=== PATIENT | female | born 1960 | race Caucasian/White ===

== ENCOUNTER 2020-03-27 08:08 | Inpatient (IN) | payer MEDICAID, SELFPAY ==
[2020-03-27] VITALS (33 sets, daily range): BP systolic 78–128; BP diastolic 50–104; PULSE 69–91; RESP 16–25; TEMP 36.3–36.7; O2SAT 94–100; BMI 30.2; BMI 29.5; BMI 29.6
[2020-03-27] MEDS: TICAGRELOR 90 MG TABLET 180 MG PO (08:20)
[2020-03-27] MEDS: Heparin Injection (Vial) 5,000 UNIT/ML VIAL 4000 UNIT IV (08:20)
--- NOTE | 2020-03-27 08:20 | RAD_ITS ---
STUDY: X-RAY CHEST REASON FOR EXAM: Female, 59 years old. Used meth yesterday, CP started 2100. then started having n/v/d/, dizziness -- STEMI TECHNIQUE: Single AP portable view of the chest. COMPARISON: None. FINDINGS: EKG leads overlie the chest The lungs are clear and expanded. There is no demonstrated pleural abnormality. Normal size heart. Normal mediastinum and aron. Normal visualized pulmonary arteries. Normal visualized aortic arch and descending thoracic aorta. There are diffuse degenerative changes of the visualized thoracic spine. Sclerotic focus in the right humeral head likely is a bone infarct There is no demonstrated abnormality of the visualized soft tissue structures of the upper abdomen. RAD/Chest 1 View (Portable) IMPRESSION: No acute pulmonary process Electronically Signed: Tez Gutierres MD at 8:45 EDT , Service support ,
--- NOTE | 2020-03-27 08:28 | ED.DCSUM_ITS ---
- ER Visit Summary Date of Service: 03/27/20 Chief Complaint: Chest pain, vomiting History of Present Illness: The patient is a 59 F presenting with chest pain, vomiting. She states this started around 9 PM yesterday. She admits to methamphetamine use yesterday. She states she started having midsternal chest pain and then began having dizziness, vomiting, diarrhea. She states the symptoms lasted all through the night. She has history of previous heart attack after cocaine use. She states she has not used cocaine for several years. This morning she called EMS. She was given aspirin en route. Physical Examination: Vitals are stable. Patient is afebrile. Alert no acute d istress. HEENT exam is unremarkable. Neck is supple. Lungs are clear and equal bilaterally. Heart is regular rate and rhythm. Abdomen is soft nontender nondistended. Skin is warm and dry. No focal neurologic deficit. Remainder of exam is unremarkable. Emergency Department Course and Treatment: EKG shows ST elevation in inferior and anterior leads. Discussed with Dr. Long. She was given heparin and Brilinta. She will be taken emergently to the cardiac [facility]. Disposition: To concrete mixing plant laborer Impression: STEMI This note was generated with [employer] dictation software. It may contain incorrect words, spelling, and punctuation that were not noted in review of the chart prior to signing ED Disposition - Plan for ED Patient: Referrals: Care Physician,No Primary [Primary Care Provider] -
[2020-03-27 08:32] LABS: Absolute Lymphocyte Count 2.79 X10^3/uL (0.83-4.51); Absolute Neutrophil Count 15.7 X10^3/uL (2.0-7.7); Basophil# 0.04 X10^3/uL; Basophil% 0.2 % (0-1); Eosinophil# 0.06 X10^3/uL; Eosinophils% 0.3 % (0-5); Hemoglobin 15.4 g/dL (12.0-15.0); Lymphocyte # 2.79 X10^3/ul (4.0); Lymphocyte % 14.1 % (19-41); Mean Corp Hgb Conc 35.8 g/dL (32-36); Mean Corpuscular Hgb 29.5 pg (27.0-32.0); Mean Corpuscular Volume 82.4 fL (81-99); Mean Platelet Vol. 10.7 fl (6.2-12.0); Monocyte# 1.03 X10^3/uL; Monocyte% 5.2 % (0-10); NRBC Flagged by Analyzer 0 % (0-5); Neutrophil # 15.74 X10^3/uL (2.7-7.7); Neutrophil % 79.7 % (47-70); Platelet Count 402 K/mm3 (150-450); RBC Distribution Width CV 12.7 % (11.6-14.6); RBC Distribution Width SD 37.5 fl (35.1-43.9); Red Blood Count 5.22 M/mm3 (4.2-5.4); White Blood Count 19.8 K/mm3 (4.4-11.0)
[2020-03-27 08:45] LABS: International Normalized Ratio 1.1; Partial Thromboplast Time 25.3 Seconds (24.1-36.2); Prothrombin Time (Protime)PT. 13.8 SECONDS (11.7-14.9)
[2020-03-27 08:47] LABS: Anion Gap 12 (5-15); BUN 70 mg/dL (7-18); BUN/Creat Ratio 38.3 RATIO (10-20); Chloride 90 mmol/L (98-107); Creatinine, Serum 1.83 mg/dL (0.55-1.02); EST Glomerular Filtration Rate 30 mL/min (>60); Est Glom Filt Rate - Afr Amer 36 mL/min (>60); Estimated Creatinine Clearance 28.94 ml/min; Glucose 165 mg/dL (74-106); Potassium 2.9 mmol/L (3.5-5.1); Sodium Level 127 mmol/L (136-145)
--- NOTE | 2020-03-27 08:57 | CL.D_ITS ---
Patient Name: ACACIA QUINTERO Study Date: 03/27/2020 Performing: Dominik Long MD Ht: 64.17 inches 163 cm : 1960 Wt: 176.37 lbs 80 kg Age: 59 Gender: female BSA: 1.86 PROCEDURE(S) PERFORMED [id number]/LV CLINICAL PROFILE AND INDICATIONS Patient presents with STEMI for emergent cardiac cath. Indications: ACS <= 24 hrs, Suspected CAD Heart Failure: NYHA Class: 1, Newly Diagnosed: Yes, Heart Failure Type: Systolic Stress/Imaging Stress/Image Study Performed: No Angina Classification Anginal Classification w/in 2 Weeks: No symptoms CAD Presentations: STEMI. Symptom onset Date/Time: 03/26/2020 21:00:00 Time Estimated Comorbidities/Risk Factors: Current/Recent Smoker (< 1year) Prior RI CONCLUSIONS Normal coronary arteries Segmented LV systolic dysfunction- Severe LVEF: by LV gram 30 % Normal Left Ventricular End Diastolic Pressure RECOMMENDATIONS Management as per referring Code Enforcement Officer Manual sheath removal given pts h/o meth use and concern for groin infection. D/w Dr Su. Repeat echo in 2 months. DESCRIPTION OF PROCEDURE The patient arrived to the procedure lab. The risks and benefits of the procedure as well as a full d escription of our services here and current unavailability of surgical backup were fully explained to the patient and/or their significant other prior to the catheterization. The Timeout was completed, verifying the correct patient and procedure. The patient's procedural site was prepped and draped in the usual fashion. Local anesthetic was given subcutaneously to right groin region with Lidocaine 2%. Using a modified Seldinger technique, arterial access was obtained via the right femoral artery, a 6 Fr sheath was inserted. Right Coronary Artery selective angiography was then performed in multiple v iews using a 4 Fr. 3DRC catheter. Left Coronary Artery selective angiography was performed in multipl e views using a 6 Fr. EBU 3.5 guide. Left Ventriculography was performed in QUINTEROS projection using a 4 Fr. Pigtail catheter. LV to AO pullback pressures were then recorded.The arterial sheath was sutured in place and capped CORONARY ANGIOGRAPHY DOMINANCE: Right Dominant LEFT HEART ASSESSMENT Left Ventricular Ejection Fraction: by LV Gram 30% with lise-apical hypokinesis % Anterior Dyskinesis - Severe. Apical Dyskinesis - Severe. Inferior Apical Dyskinesis - Moderate Consistent with Takotsubo cardiomyopathy. LVEDP: 9 mmHg Normal Left Ventricular End Diastolic Pressure Cardiomyopathy: Takutsubo LEFT MAIN: Angiographically normal LEFT ANTERIOR DESCENDING ARTERY: Angiographically normal CIRCUMFLEX ARTERY: Angiographically normal RIGHT CORONARY ARTERY: Angiographically normal COMPLICATIONS No Complications PROCEDURE MEDICATIONS Oxygen: 2 L/min via nasal cannula SUMMARY OF HEMODYNAMIC DATA Time AIR REST ECG 08:31:32 AO 76/40 (55) SA 08:38:56 LV 100/-12, 7 08:41:21 LV 98/-12, 6 08:41:27 LVp 103/-12, -1 08:41:37 AOp 106/49 (69) 08:41:42 Signed By Dominik Long MD On 03/27/2020 8:56:35 AM Dominik Long MD
[2020-03-27 09:25] LABS: Internal QC Validated? YES +Cl - CLEAR BKGD; Pregnancy, Serum, hCG Quali. POSITIVE > 10 Negative
[2020-03-27] MEDS: fentaNYL 100 MCG/2 ML Ampul 25 MCG IV (09:40)
[2020-03-27] MEDS: Midazolam 2 MG/2 ML Syringe 1 MG IV (09:40)
[2020-03-27 10:51] LABS: ACT Activated Clotting Time 142 sec (74-137)
[2020-03-27] MEDS: LORazepam 1 MG Tablet PO ×2 (10:53→15:45)
[2020-03-27 12:38] LABS: hCG Titer Quant., Serum 7 mIU/mL (1-3)
[2020-03-27] MEDS: buPROPion (XL) 150 MG TABLET.XL PO (14:01)
[2020-03-27] MEDS: Carvedilol 3.125 MG TABLET PO (14:01)
[2020-03-27] MEDS: busPIRone 15 MG TABLET PO ×2 (14:02→22:10)
[2020-03-27] MEDS: Gabapentin 800 MG Tablet PO ×2 (14:02→17:45)
[2020-03-27 15:38] LABS: Internal QC Validated? YES +Cl - CLEAR BKGD; Pregnancy, Urine Negative Negative
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
[2020-03-27] MEDS: clonazePAM 0.5 MG Tablet PO (18:15)
[2020-03-27] MEDS: Atorvastatin Calcium 40 MG Tablet PO (22:10)
[2020-03-27] MEDS: traZODone 100 MG Tablet PO (22:10)
[2020-03-28] VITALS (16 sets, daily range): BP systolic 85–118; BP diastolic 48–87; PULSE 73–100; RESP 14–24; TEMP 36.4–37.1; O2SAT 93–96
[2020-03-28 04:00] LABS: Absolute Lymphocyte Count 2.88 X10^3/uL (0.83-4.51); Absolute Neutrophil Count 9.5 X10^3/uL (2.0-7.7); Basophil# 0.06 X10^3/uL; Basophil% 0.4 % (0-1); Eosinophil# 0.13 X10^3/uL; Hematocrit 38.6 % (37-47); Hemoglobin 13.5 g/dL (12.0-15.0); Lymphocyte # 2.88 X10^3/ul (4.0); Lymphocyte % 21.5 % (19-41); Mean Corpuscular Hgb 29.3 pg (27.0-32.0); Mean Corpuscular Volume 83.9 fL (81-99); Mean Platelet Vol. 10.3 fl (6.2-12.0); Monocyte# 0.77 X10^3/uL; Monocyte% 5.8 % (0-10); NRBC Flagged by Analyzer 0 % (0-5); Neutrophil # 9.48 X10^3/uL (2.7-7.7); Neutrophil % 70.8 % (47-70); Platelet Count 329 K/mm3 (150-450); RBC Distribution Width CV 13.2 % (11.6-14.6); RBC Distribution Width SD 40.1 fl (35.1-43.9); White Blood Count 13.4 K/mm3 (4.4-11.0)
[2020-03-28 04:13] LABS: Anion Gap 10 (5-15); BUN 43 mg/dL (7-18); BUN/Creat Ratio 51.9 RATIO (10-20); Calcium,Total 8.4 mg/dL (8.5-10.1); Chloride 98 mmol/L (98-107); Creatinine, Serum 0.83 mg/dL (0.55-1.02); EST Glomerular Filtration Rate 75 mL/min (>60); Est Glom Filt Rate - Afr Amer 91 mL/min (>60); Glucose 140 mg/dL (74-106); Potassium 3.5 mmol/L (3.5-5.1); Sodium Level 132 mmol/L (136-145)
[2020-03-28 07:05] LABS: ACT Activated Clotting Time 197 sec (74-137)
--- NOTE | 2020-03-28 08:57 | PN.CARD_ITS ---
Subjectve: Patient doing well this morning however still has episodes of hypotension, as well as some anxiety. She is less anxious than yesterday. She denies any right groin pain, chest pain, or angina. Echocardiogram in progress. Telemetry negative. EKG today 03/28/2020 shows normal sinus rhythm with resolving anterior T wave inversion with QT corrected interval of 548 ms. Objective: Vital Signs Temp Pulse Resp BP Pulse Ox 97.6 F L 82 24 H 104/64 94 03/28/20 04:00 03/28/20 06:00 03/28/20 06:00 03/28/20 06:00 03/28/20 06:00 Oxygen Delivery Method Room Air Weight: 172 lb 2.896 oz Body Mass Index (BMI) 29.5 Intake and Output for Last 24 Hours 03/26/20 03/27/20 03/28/20 23:59 23:59 23:59 Intake Total 1000 / 1000 725 / 725 Output Total 1175 / 1175 400 / 400 Balance -175 / -175 325 / 325 General: Awake, Alert, Oriented x 3 HEENT: PERRL, EOMI, Sclera Non Icteric Neck: Supple, Good ROM, No Lymph Node Enlargement Lungs: Clear to auscultation Cardiovascular: Regular Rhythm, Normal S1, Normal S2, No Murmurs, No Rubs, No Gallops Vascular: No Carotid Bruits, Normal Femoral Pulses, Normal Radial Pulses, Normal Dorsalis Pedal Pulse, Normal Posterior Tibial Pulses Abdomen: Bowel Sounds Present, Soft, Non Tender, No HSM, No Organomegaly Extremities: No Cyanosis, No Clubbing, No edema Neurological: No Focal Motor or Sensory Deficit 03/28/20 03:55: WBC 13.4 H, RBC 4.60, Hgb 13.5, Hct 38.6, MCV 83.9, MCH 29.3, MCHC 35.0, Plt Count 329, MPV 10.3, Immature Gran % (Auto) 0.500, Neut % (Auto) 70.8 H, Lymph % (Auto) 21.5, Davison % (Auto) 5.8, Eos % (Auto) 1.0, Baso % (Auto) 0.4, Absolute Neuts (auto) 9.5 H, Nucleated RBC % 0 03/28/20 03:55: Sodium 132 L, Potassium 3.5, Chloride 98, Carbon Dioxide 24.0, Anion Gap 10, BUN 43 H, Creatinine 0.83, Est GFR (MDRD) Af Amer 91, Est GFR (MDRD) Non-Af 75, BUN/Creatinine Ratio 51.9 H, Glucose 140 H, Calcium 8.4 L Rhythm: EKG: ECHO: Stress Test: Cardiac Cath: PCI: CT Surgery: Holter monitor: EPS: PPM: CXR: Chest CT Scan: Medical Necessity - Tobacco Use Smoking Status: Current every day smoker Tobacco Use: Cigarettes Assessment/Plan 1. LV dysfunction: The patient presents with what appears to be methamphetamine induced tach at [place] cardiomyopathy with acute coronary vasoconstriction of the anterior apical and inferior apical territories. 2D echo with Doppler in progress and confirms anteroseptal apical and inferior apical hypokinesis, final results pending. Her emergent left heart catheterization yesterday demonstrated relatively normal coronary arteries, no indication for intervention. Brilinta was discontinued. Recommend continuing Coreg 3.125 mg p.o. twice daily. Would avoid lisinopril at this time given the patient's hypotension. I recommend the patient be transferred to PCU for 1 more day of blood pressure monitoring and ambulation. In addition the patient will most likely benefit from social work interaction/intervention for her chronic drug use. The patient apparently may have had a similar episode using cocaine about 10 years ago where she required emergent catheterization but no intervention was performed. I have informed the patient that she is at a higher risk for recurrent Takostubos cardiomyopathy if she continues to use methamphetamine, cocaine, or just in general and to avoid high stress situations that may precipitate coronary vasoconstriction. Patient is voiced understanding. 2. Patient may be transferred to PCU for 1 more day of observation. 3. Thank you very much for the opportunity to participate in the cardiac care of your patient. Inpatient E&M: 14331 Subs Hosp L2
[2020-03-28] MEDS: Aspirin 81 MG TAB.CHEW PO (09:00)
[2020-03-28] MEDS: Gabapentin 800 MG Tablet PO ×3 (09:00→16:18)
[2020-03-28] MEDS: buPROPion (XL) 150 MG TABLET.XL PO (09:00)
[2020-03-28] MEDS: Carvedilol 3.125 MG TABLET PO ×2 (09:00→23:00)
[2020-03-28] MEDS: busPIRone 15 MG TABLET PO ×2 (09:00→23:00)
[2020-03-28] MEDS: clonazePAM 0.5 MG Tablet PO ×2 (09:02→18:53)
--- NOTE | 2020-03-28 10:51 | PN_ITS ---
Subjective: Feels much better, no chest pain, no lightheadedness or dizziness. Vitals/I&O's: Vital Signs Temp Pulse Resp BP Pulse Ox 98.0 F 87 17 115/64 96 03/28/20 08:00 03/28/20 08:00 03/28/20 08:00 03/28/20 08:00 03/28/20 08:00 Oxygen Delivery Method Room Air Weight: 172 lb 2.896 oz Body Mass Index (BMI) 29.5 Intake and Output for Last 24 Hours 03/26/20 03/27/20 03/28/20 23:59 23:59 23:59 Intake Total 1000 / 1000 725 / 725 Output Total 1175 / 1175 400 / 400 Balance -175 / -175 325 / 325 General: Alert, Oriented x3, Cooperative, No apparent distress HEENT: Atraumatic, PERRLA, EOMI, Normocephalic Oral: Dry Mucosa Neck: Supple, No JVD Lungs: Clear to auscultation, Normal air movement, No rhonchi, No wheeze, No rales Cardiovascular: Regular rate, Regular Rhythm, Normal S1, Normal S2, No murmurs Abdomen: Soft, Non Tender, Non-Distended, No Hepato-splenomegaly Extremities: No edema, Capillary Refill Less than 3 Seconds Skin: No rashes, No breakdown Neurological: Neuro grossly intact, Sensory exam intact to light touch and pain Psych/Mental Status: Normal affect, Restless Laboratory Results 03/27/20 08:15: HCG, Quant 7 H 03/27/20 08:38: Activated Clotting Time 197 H 03/27/20 10:41: Activated Clotting Time 142 H 03/27/20 15:20: Urine Test Negative 03/28/20 03:55: WBC 13.4 H, RBC 4.60, Hgb 13.5, Hct 38.6, MCV 83.9, MCH 29.3, MCHC 35.0, RDW Std Deviation 40.1, RDW Coeff of Caitlin 13.2, Plt Count 329, MPV 10.3, Immature Gran % (Auto) 0.500, Neut % (Auto) 70.8 H, Lymph % (Auto) 21.5, [place] % (Auto) 5.8, Eos % (Auto) 1.0, Baso % (Auto) 0.4, Absolute Neuts (auto) 9.5 H, Absolute Lymphs (auto) 2.88, Nucleated RBC % 0 03/28/20 03:55: Sodium 132 L, Potassium 3.5, Chloride 98, Carbon Dioxide 24.0, Anion Gap 10, BUN 43 H, Creatinine 0.83, Estim Creat Clear Calc 63.80, Est GFR (MDRD) Af Amer 91, Est GFR (MDRD) Non-Af 75, BUN/Creatinine Ratio 51.9 H, Glucose 140 H, Calcium 8.4 L Current Medications Albuterol Sulfate (Ventolin Aerosols) 2.5 mg INHALATION Q4H PRN PRN Reason: SOB &/OR WHEEZING Aspirin (Aspirin, Baby) 81 mg PO DAILY@0800 [facility] Last Admin: 03/28/20 09:00 Dose: 81 mg Documented by: Atorvastatin Calcium (Lipitor) 40 mg PO QHS [facility] Last Admin: 03/27/20 22:10 Dose: 40 mg Documented by: Bupropion HCl (Wellbutrin Xl) 150 mg PO DAILY [facility] Last Admin: 03/28/20 09:00 Dose: 150 mg Documented by: Buspirone HCl (Buspar) 15 mg PO BID [facility] Last Admin: 03/28/20 09:00 Dose: 15 mg Documented by: Carvedilol (Coreg) 3.125 mg PO BID [facility] Last Admin: 03/28/20 09:00 Dose: 3.125 mg Documented by: Clonazepam (Klonopin) 0.5 mg PO BID PRN PRN Reason: ANXIETY Last Admin: 03/28/20 09:02 Dose: 0.5 mg Documented by: Gabapentin (Neurontin) 800 mg PO TIDCM [facility] Last Admin: 03/28/20 09:00 Dose: 800 mg Documented by: Heparin Sodium (Beef Lung) (Heparin 500 Unit/5 Ml (100/Ml)) 500 unit IV UD PRN PRN Reason: HEPARIN FLUSH Sodium Chloride () 250 mls @ 15 mls/hr IV .[id number] PRN PRN Reason: Saline Flush Sodium Chloride () 250 mls @ 15 mls/hr IV .[id number] PRN PRN Reason: Additional IVPB Infusion Labetalol HCl (Trandate) 5 mg IV X1 PRN PRN Reason: SBP > 160 prior to sheath pull Stop: 03/29/20 08:45 Lorazepam (Ativan) 1 mg PO Q4H PRN PRN PRN Reason: AGITATION Last Admin: 03/27/20 15:45 Dose: 1 mg Documented by: Meloxicam (Mobic) 15 mg PO DAILY PRN PRN Reason: pain Sodium Chloride () 10 - 40 ml IV UD PRN PRN Reason: SALINE FLUSH Trazodone HCl (Desyrel) 100 mg PO QHS [facility] Last Admin: 03/27/20 22:10 Dose: 100 mg Documented by: STROKE Vital Signs/Narrative: Vital Signs Temp Pulse Resp BP BP Pulse Ox 03/28/20 08:00 98.0 F 87 17 115/64 96 03/28/20 07:00 82 23 H 91/48 L 94 Medical Necessity - Tobacco Use Smoking Status: Current every day smoker Tobacco Use: Cigarettes Assessment/Plan 1. Takotsubo cardiomyopathy/tobacco abuse/hyperlipidemia/HTN -Elevated troponin with ST elevations in anterior inferior leads with normal coronary arteries on cath -Currently on Coreg and aspirin in the ICU post-cath -Chest pain episode with this was likely related to her methamphetamine use -She did have a cath about 10 years ago which was also normal placed -Continue with her Lipitor but will hold her Norvasc since her blood pressure is in the low 100s -Echo is pending but she had an EF of 30% on the cardiac cath with severe left ventricular dysfunction, this should improve with medical management over time and she will likely need a repeat echo in a couple of months 2. Anxiety/depression/methamphetamine use -Counseled on cessation -Continue with her Wellbutrin, BuSpar, clonazepam, gabapentin, Remeron, and trazodone 3. She had an elevated beta hCG on serum qualitative testing prior to her cath, a serum quantitative test was also positive therefore she had a urine test done which was negative indicating that these serum tests were likely false positives. DVT: SCDs Inpatient E&M: [id number] Subs Hosp L2
[2020-03-28 11:25] LABS: Thyroid Stim Hormone (TSH) 0.84 uIU/mL (0.358-3.74)
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
--- NOTE | 2020-03-28 15:43 | CASEMGMT ---
SW did give patient resources for substance abuse and mental health. She was very appreciative. Divya BUSCH MSW
[2020-03-28] MEDS: LORazepam 1 MG Tablet PO (20:03)
[2020-03-28] MEDS: traZODone 100 MG Tablet PO (23:00)
[2020-03-28] MEDS: Atorvastatin Calcium 40 MG Tablet PO (23:01)
[2020-03-29] MEDS: LORazepam 1 MG Tablet PO (02:39)
[2020-03-29 02:46] VITALS: BP 109/54; PULSE 65; RESP 17; TEMP 36.8; O2SAT 100
[2020-03-29 04:06] VITALS: PULSE 72
[2020-03-29 07:00] VITALS: PULSE 69
--- NOTE | 2020-03-29 08:24 | DCINST_ITS ---
- Discharge Diagnoses Current Active Problems: Current Active and Chronic Problems (Last Updated 03/28/20 @ 16:29 by Delmis Laguna) STEMI (ST elevation myocardial infarction) (Acute 03/27/20) Takotsubo syndrome (Acute) History of left heart catheterization (Chronic 03/27/20) Normal coronary arteries Segmented LV systolic dysfunction- Severe. LVEF: by LV gram 30 %. Normal Left Ventricular End Diastolic Pressure. Per DJN @ [facility] 03/27/2020. Essential hypertension (Chronic) Hyperlipidemia (Chronic) You will use the following diet at home:: Cardiac Your food should be the consistency of: Regular Your liquids should be the consistency of: Regular/Thin Discharge Activity: Return to Normal Activity Call your doctor if you observe: Fever of 101 or Higher, Shortness of breath, Dizziness, Fainting spells, Swelling in the ankles, Chest pain, Increased palpitations (irregular heartbeat) Allergies/Adverse Reactions: Allergies No Known Allergies Allergy (Unverified 03/27/20 08:15) Medications to take at Discharge Albuterol Inhaler [Ventolin Hfa] 2 puff INHALATION Q6H PRN PRN 03/27/20 Atorvastatin Calcium 40 mg PO QHS 03/27/20 Bupropion HCl [Bupropion Xl] 150 mg PO DAILY 03/27/20 Clonazepam 0.5 mg PO BID PRN 03/27/20 Gabapentin 800 mg PO TID 03/27/20 Meloxicam 15 mg PO DAILY PRN 03/27/20 busPIRone [Buspar] 15 mg PO BID 03/27/20 traZODone [Desyrel] 100 mg PO QHS 03/27/20 Aspirin [Aspirin, Baby] 81 mg PO DAILY@0800 #60 tab.chew 03/29/20 Carvedilol [Coreg (Beta Shashi)] 3.125 mg PO BID #120 tab 03/29/20 The following prescriptions were given: Aspirin [Aspirin, Baby] 81 mg PO DAILY@0800 #60 tab.chew Transmission Status: Pending to [facility] Carvedilol [Coreg (Beta Shashi)] 3.125 mg PO BID #120 tab Transmission Status: Pending to [facility] Primary Care Physician: Care Physician,No Primary [Primary Care Provider] - Please follow up with your Primary Care Physician in: 3-5 days Test Results: Test results from this visit will be discussed in further detail at your follow- up appointment, if applicable. Please Follow Up With: Dominik Long MD When: 4 weeks
[2020-03-29 08:40] VITALS: BP 109/54; PULSE 65; RESP 17; TEMP 36.8; O2SAT 100
--- NOTE | 2020-03-29 09:13 | PCM.PN.CARD ---
Subjectve: Patient seen and examined, doing fairly well. No 24-hour events. Telemetry shows normal sinus rhythm, no ventricular ectopy. Tolerating Coreg well. Objective: Vital Signs Temp Pulse Resp BP Pulse Ox 98.3 F 65 17 109/54 L 100 03/29/20 08:40 03/29/20 08:40 03/29/20 08:40 03/29/20 08:40 03/29/20 08:40 Oxygen Delivery Method Room Air Weight: 172 lb 2.896 oz Body Mass Index (BMI) 29.5 Intake and Output for Last 24 Hours 03/27/20 03/28/20 03/29/20 23:59 23:59 23:59 Intake Total 1000 / 1000 2325 / 2325 1100 / 1100 Output Total 1175 / 1175 1200 / 1200 Balance -175 / -175 1125 / 1125 1100 / 1100 General: Awake, Alert, Oriented x 3 HEENT: PERRL, EOMI, Sclera Non Icteric Neck: Supple, Good ROM, No Lymph Node Enlargement Lungs: Clear to auscultation Cardiovascular: Regular Rhythm, Normal S1, Normal S2, No Murmurs, No Rubs, No Gallops Vascular: No Carotid Bruits, Normal Femoral Pulses, Normal Radial Pulses, Normal Dorsalis Pedal Pulse, Normal Posterior Tibial Pulses Abdomen: Bowel Sounds Present, Soft, Non Tender, No HSM, No Organomegaly Extremities: No Cyanosis, No Clubbing, No edema Neurological: No Focal Motor or Sensory Deficit Rhythm: EKG: ECHO: Stress Test: Cardiac Cath: PCI: CT Surgery: Holter monitor: EPS: PPM: CXR: Chest CT Scan: Medical Necessity - Tobacco Use Smoking Status: Current every day smoker Tobacco Use: Cigarettes Assessment/Plan 1. 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 2D echo with Doppler in progress and confirms anteroseptal apical and inferior apical hypokinesis, final results pending. Her emergent left heart catheterization in 03/27/2020 which demonstrated relatively normal coronary arteries, no indication for intervention. Brilinta was discontinued. Recommend continuing Coreg 3.125 mg p.o. twice daily. Would avoid lisinopril at this time given the patient's hypotension. Recommended continuing her Norvasc. The patient be discharged home on Coreg. No indication for anticoagulation at this time. The patient apparently may have had a similar episode using cocaine about 10 years ago where she required emergent catheterization but no intervention was performed. I have informed the patient that she is at a higher risk for recurrent Takostubos cardiomyopathy if she continues to use methamphetamine, cocaine, or just in general and to avoid high stress situations that may precipitate coronary vasoconstriction. Patient is voiced understanding. 2. Patient may be charged home. May follow-up with Dr. Long going forward. 3. Thank you very much for the opportunity to participate in the cardiac care of your patient. Discussed with Dr. Su Inpatient E&M: 32580 Subs Hosp L2
--- NOTE | 2020-03-29 09:24 | PCM.DC.SUM ---
Discharge Date and Diagnosis - Problem List Patient Problems: Active and Suspected Problems (Last Updated 03/28/20 @ 16:29 by Delmis Laguna) STEMI (ST elevation myocardial infarction) (Acute 03/27/20) Takotsubo syndrome (Acute) Date of Admission: 03/27/20 Date of Discharge: 03/29/20 - Primary Discharge Diagnosis Acute Problems: Active Problems (Last Updated 03/28/20 @ 16:29 by Delmis Laguna) STEMI (ST elevation myocardial infarction) (Acute 03/27/20) Takotsubo syndrome (Acute) - Secondary Discharge Diagnosis Chronic Problems: Chronic Problems (Last Updated 03/28/20 @ 16:29 by Delmis Laguna) History of left heart catheterization (Chronic 03/27/20) Normal coronary arteries Segmented LV systolic dysfunction- Severe. LVEF: by LV gram 30 %. Normal Left Ventricular End Diastolic Pressure. Per [facility]N @ [facility] 03/27/2020. Essential hypertension (Chronic) Hyperlipidemia (Chronic) Hospital Course and Treatment Imaging Results: CXR: IMPRESSION: No acute pulmonary process Cardiac Cath:CLINICAL PROFILE AND INDICATIONS Patient presents with STEMI for emergent cardiac cath. Indications: ACS <= 24 hrs, Suspected CAD Heart Failure: NYHA Class: 1, Newly Diagnosed: Yes, Heart Failure Type: Systolic Stress/Imaging Stress/Image Study Performed: No Angina Classification Anginal Classification w/in 2 Weeks: No symptoms CAD Presentations: STEMI. Symptom onset Date/Time: 03/26/2020 21:00:00 Time Estimated Comorbidities/Risk Factors: Current/Recent Smoker (< 1year) Prior GA CONCLUSIONS Normal coronary arteries Segmented LV systolic dysfunction- Severe LVEF: by LV gram 30 % Normal Left Ventricular End Diastolic Pressure RECOMMENDATIONS Management as per referring Pharmacy Intake Coordinator Manual sheath removal given pts h/o meth use and concern for groin infection. D/w Dr Su. Repeat echo in 2 months. Consults: Cardiology Operations: None Procedures: 2-D Echocardiogram, Cardiac catheterization Summary of Care Provided: Per HPI: The patient is a 59 year old F with PMH as below who presents with chest pain that started last night at 9 PM after her first time use of methamphetamines. She says that the chest pain was on and off and she started having some dizziness, vomiting, and diarrhea. She presented to the ER when the chest pain did not resolve and she was found to have an elevated troponin II 0.[address] elevations in the anterior inferior leads. Stimulant was called and she was taken to the [facility] where her coronary arteries were found to be normal. Based on the EKG findings and the elevated troponin she was felt to have Takotsubo's. She is feeling better after the has some baseline anxiety issues is little bit restless in bed at this time. Hospital Course: 1. Takotsubo cardiomyopathy/tobacco abuse/HLD/QDN-50-hpal-old female who presents after a single time meth use with chest pain. Had gone to bed that she came into the ER. She underwent a cardiac cath which showed an EF of 30% and severe left ventricular dysfunction with clean coronary arteries. She did have ST elevations in the anterior/inferior leads as well as an elevated troponin indicating a takotsubo cardiomyopathy. She will need to follow-up with cardiology as an outpatient and have a repeat echo in 2 months to document improvement. She was started on aspirin, Coreg and continued on her Lipitor. Her blood pressures were borderline low in the low 100s to low 1 teens therefore her Norvasc was discontinued. She will need to follow-up with a PCP in about a week and cardiology in 2 to 4 weeks. She is feeling well today and would like to go home, I discussed with her the risks and benefits of discharge and she expressed understanding. 2. Her other medical diagnoses were evaluated and her home medications were continued where appropriate Patient Problems: Active and Suspected Problems (Last Updated 03/28/20 @ 16:29 by Delmis Laguna) STEMI (ST elevation myocardial infarction) (Acute 03/27/20) Takotsubo syndrome (Acute) - Physical Exam Vitals/I&O's: Vital Signs Temp Pulse Resp BP Pulse Ox 98.3 F 65 17 109/54 L 100 03/29/20 08:40 03/29/20 08:40 03/29/20 08:40 03/29/20 08:40 03/29/20 08:40 Oxygen Delivery Method Room Air Weight: 172 lb 2.896 oz Body Mass Index (BMI) 29.5 Intake and Output for Last 24 Hours 03/27/20 03/28/20 03/29/20 23:59 23:59 23:59 Intake Total 1000 / 1000 2325 / 2325 1100 / 1100 Output Total 1175 / 1175 1200 / 1200 Balance -175 / -175 1125 / 1125 1100 / 1100 General: Alert, Oriented x3, Cooperative, No apparent distress HEENT: Atraumatic, PERRLA, EOMI, Normocephalic Oral: Moist mucosa Neck: Supple, No JVD Lungs: Clear to auscultation, Normal air movement, No rhonchi, No wheeze, No rales Cardiovascular: Regular rate, Regular Rhythm, Normal S1, Normal S2, No murmurs Abdomen: Soft, Non Tender, Non-Distended, No Hepato-splenomegaly Extremities: No edema, Capillary Refill Less than 3 Seconds Skin: No rashes, No breakdown Neurological: Neuro grossly intact, Sensory exam intact to light touch and pain Psych/Mental Status: Normal affect, Restless Laboratory Results 03/28/20 03:55: TSH 0.84 Current Medications Albuterol Sulfate (Ventolin Aerosols) 2.5 mg INHALATION Q4H PRN PRN Reason: SOB &/OR WHEEZING Aspirin (Aspirin, Baby) 81 mg PO DAILY@0800 [facility] Last Admin: 03/28/20 09:00 Dose: 81 mg Documented by: Atorvastatin Calcium (Lipitor) 40 mg PO QHS [facility] Last Admin: 03/28/20 23:01 Dose: 40 mg Documented by: Bupropion HCl (Wellbutrin Xl) 150 mg PO DAILY [facility] Last Admin: 03/28/20 09:00 Dose: 150 mg Documented by: Buspirone HCl (Buspar) 15 mg PO BID [facility] Last Admin: 03/28/20 23:00 Dose: 15 mg Documented by: Carvedilol (Coreg) 3.125 mg PO BID [facility] Last Admin: 03/28/20 23:00 Dose: 3.125 mg Documented by: Clonazepam (Klonopin) 0.5 mg PO BID PRN PRN Reason: ANXIETY Last Admin: 03/28/20 18:53 Dose: 0.5 mg Documented by: Gabapentin (Neurontin) 800 mg PO TIDCM [facility] Last Admin: 03/28/20 16:18 Dose: 800 mg Documented by: Heparin Sodium (Beef Lung) (Heparin 500 Unit/5 Ml (100/Ml)) 500 unit IV UD PRN PRN Reason: HEPARIN FLUSH Sodium Chloride () 250 mls @ 15 mls/hr IV .[id number] PRN PRN Reason: Saline Flush Sodium Chloride () 250 mls @ 15 mls/hr IV .[id number] PRN PRN Reason: Additional IVPB Infusion Lorazepam (Ativan) 1 mg PO Q4H PRN PRN PRN Reason: AGITATION Last Admin: 03/29/20 02:39 Dose: 1 mg Documented by: Meloxicam (Mobic) 15 mg PO DAILY PRN PRN Reason: pain Sodium Chloride () 10 - 40 ml IV UD PRN PRN Reason: SALINE FLUSH Trazodone HCl (Desyrel) 100 mg PO QHS [facility] Last Admin: 03/28/20 23:00 Dose: 100 mg Documented by: Discharge Activity: Return to Normal Activity Call your doctor if you observe: Fever of 101 or Higher, Shortness of breath, Dizziness, Fainting spells, Swelling in the ankles, Chest pain, Increased palpitations (irregular heartbeat) Home Medications: Medications to take at Discharge Albuterol Inhaler [Ventolin Hfa] 2 puff INHALATION Q6H PRN PRN 03/27/20 Atorvastatin Calcium 40 mg PO QHS 03/27/20 Bupropion HCl [Bupropion Xl] 150 mg PO DAILY 03/27/20 Clonazepam 0.5 mg PO BID PRN 03/27/20 Gabapentin 800 mg PO TID 03/27/20 Meloxicam 15 mg PO DAILY PRN 03/27/20 busPIRone [Buspar] 15 mg PO BID 03/27/20 traZODone [Desyrel] 100 mg PO QHS 03/27/20 Aspirin [Aspirin, Baby] 81 mg PO DAILY@0800 #60 tab.chew 03/29/20 Carvedilol [Coreg (Beta Shashi)] 3.125 mg PO BID #120 tab 03/29/20 Following Prescrptions Were Given to Patient: Aspirin [Aspirin, Baby] 81 mg PO DAILY@0800 #60 tab.chew Transmission Status: Received by [facility] Carvedilol [Coreg (Beta Shashi)] 3.125 mg PO BID #120 tab Transmission Status: Received by [facility] Primary Care Physician: Care Physician,No Primary [Primary Care Provider] - Please follow up with your Primary Care Physician in: 3-5 days Please Follow Up With: Dominik Long MD When: 4 weeks Disposition: Home Minutes spent on discharge:: 35 Patient Condition:: Stable Medical Necessity - Tobacco Use Smoking Status: Current every day smoker Tobacco Use: Cigarettes Meaningful Use Info Meaningful Use Diagnoses (Choose all that apply): AMI, CHF - AMI/Post PCI/Angioplasty Aspirin given w/in 24hrs of arrival?: Yes ASA at discharge?: Yes Statins at discharge?: Yes Alexandre/ARB at discharge?: No Reason Alexandre/ARB not ordered:: Hypotension Beta Shashi at discharge?: Yes Done w/ Acute GA measure.: Yes Documented LVEF (%): 30 - CHF ALEXANDRE/ARB ordered at discharge?: No Reason ALEXANDRE/ARB not ordered?: Hypotension Documented LVEF (%): 30 Inpatient E&M: 91047 Disch Hosp
[2020-03-29 09:48] VITALS: BP 119/75; PULSE 69; RESP 18; TEMP 36.7; O2SAT 96
[2020-03-29] MEDS: busPIRone 15 MG TABLET PO (09:52)
[2020-03-29] MEDS: buPROPion (XL) 150 MG TABLET.XL PO (09:52)
[2020-03-29] MEDS: Gabapentin 800 MG Tablet PO ×2 (09:52→11:32)
[2020-03-29] MEDS: Carvedilol 3.125 MG TABLET PO (09:52)
[2020-03-29] MEDS: Aspirin 81 MG TAB.CHEW PO (09:52)
--- NOTE | 2020-03-29 10:01 | PHA.DC.MC ---
Pharmacy Service has performed discharge medication reconciliation and counseling for this patient. 1. ASPIRIN 81MG PO DAILY 2. CARVEDILOL 3.125MG PO BID The patient's discharge medication list was reviewed for discrepancies and discrepancies were resolved. Home Medications Albuterol Inhaler [Ventolin Hfa] 2 puff INHALATION Q6H PRN PRN 03/27/20 Atorvastatin Calcium 40 mg PO QHS 03/27/20 Bupropion HCl [Bupropion Xl] 150 mg PO DAILY 03/27/20 Clonazepam 0.5 mg PO BID PRN 03/27/20 Gabapentin 800 mg PO TID 03/27/20 Meloxicam 15 mg PO DAILY PRN 03/27/20 busPIRone [Buspar] 15 mg PO BID 03/27/20 traZODone [Desyrel] 100 mg PO QHS 03/27/20 Aspirin [Aspirin, Baby] 81 mg PO DAILY@0800 #60 tab.chew 03/29/20 Carvedilol [Coreg (Beta Shashi)] 3.125 mg PO BID #120 tab 03/29/20 The patient was counseled on the following discharge medications and changes in medications for homegoing were reviewed. The Reason for Use, instructions for use, and potential side effects were reviewed for all new medications. The patient's questions regarding all of their medications were answered. The patient was able to verbally demonstrate an understanding of their discharge medications.
[2020-03-29] MEDS: clonazePAM 0.5 MG Tablet PO (12:40)
--- NOTE | 2020-04-17 10:08 | CASEMGMT ---
Social Work Discharge follow up Phone call: Discharge Date: 03/29/20 Call Date: 04/17/20 Callt Time: 1005 Reason for Follow up: resources provided for mental health and substance abuse Summary of Call: No answer and no voice mail Interventions: Pt unavailable. SW will attempt to call at a later date as time allows. KEIRA Junior
--- NOTE | 2020-04-25 08:46 | CASEMGMT ---
Social Work Followup Phone Call: Discharge Date: 03/29/20 Call Date: 04/25/20 Call Time: 0845 Reason for followup: resources provided for substance abuse and mental health Summary of Call: SW spoke with pt who reports things in her life have drastically improved since hospitalization. Pt now has safe permanent housing and a strong support system. Interventions: Encouragement and praise offered to pt. Pt denies need for any further community resources and is appreciative of followup call. No further needs requested or indicated. KEIRA Junior
== END 2020-03-29 13:01 | disposition home or self-care (01) | DRG 192 ==
LOC: ED 08:21 → ICU 08:54 → PCU 03-28 10:34
PROVIDERS: Family Medicine; Admitting Provider Internal Medicine Cardiovascular Disease; Emergency Provider Emergency Medicine; Referring Provider Internal Medicine Cardiovascular Disease; Visit Provider Internal Medicine Cardiovascular Disease
DX: I51.81 Takotsubo syndrome (principal); I10 Essential (primary) hypertension; F41.9 Anxiety disorder, unspecified; F32.9 Major depressive disorder, single episode, unspecified; F17.210 Nicotine dependence, cigarettes, uncomplicated; F15.90 Other stimulant use, unspecified, uncomplicated; E78.5 Hyperlipidemia, unspecified; I25.2 Old myocardial infarction; Z79.1 Long term (current) use of non-steroidal anti-inflammatories (NSAID); Z79.899 Other long term (current) drug therapy
CPT/HCPCS: 71045; 80048; 81025; 84443; 84484; 84702; 84703; 85025; 85347; 85610; 85730; 93005; 93306; 93458; 99285; 99406; Q9957; A4216; C1769; C1887; Q9967

== ENCOUNTER → 2020-06-28 14:47 | Outpatient (CLI) | payer MEDICAID, SELFPAY ==
[2020-05-03 13:45] VITALS: BMI 31.6
--- NOTE | 2020-06-28 14:49 | ECHOL_ITS ---
Reason For Study: CHF, EVAL EF, TAKOTSUBO SYNDROME Procedure This was a limited 2D transthoracic echocardiogram. Exam performed in department. Left Ventricle Normal LV size. Left ventricular systolic function is normal. The estimated ejection fraction is 60 %. No regional wall motion abnormalities noted. Great Vessels Normal aortic root. The pulmonary artery is normal size. Pericardium/Pleural No pericardial effusion. MMode/2D Measurements & Calculations LVIDd: 4.4 cm IVSd: 1.1 cm LVAd ap4: 21.3 cm2 LVIDs: 2.8 cm LVPWd: 1.1 cm EDV(MOD-sp4): 54.4 ml FS: 35.6 % EDV(sp4-el): 54.5 ml LVAs ap4: 11.1 cm2 ESV(MOD-sp4): 18.9 ml ESV(sp4-el): 17.9 ml EF(MOD-sp4): 65.2 % EF(sp4-el): 67.2 % SV(MOD-sp4): 35.4 ml SV(sp4-el): 36.6 ml Doppler Measurements & Calculations TR max abdulkadir: 217.5 cm/sec TR max P.9 mmHg Interpretation Summary Normal LV size. Left ventricular systolic function is normal. The estimated ejection fraction is 60 %. Compared to previous study, the left ventricular systolic function has improved.. Ordering Physician: Balbir Mijares/Dominik Long Referring Physician: Balbir Mijares/Dominik Long Performed By: Jacinta Monterroso, RDCS
== END ==
PROVIDERS: Referring Provider Nurse Practitioner Family; Visit Provider Nurse Practitioner Family
DX: I51.81 Takotsubo syndrome (principal); I50.9 Heart failure, unspecified
CPT/HCPCS: 93308